=== PATIENT | female | born 1955 | race Caucasian/White ===

== ENCOUNTER 2024-02-13 15:59 | Emergency (ER) | payer MEDICARE, MEDICAID ==
[~2024-02-13] VITALS: Ht 165.1 cm; Wt 70.8 kg
[2024-02-13 16:40] LABS: BILIRUBIN Negative (Negative); BLOOD Negative (Negative); CLARITY Clear (Clear); COLOR Yellow (Yellow); GLUCOSE Negative (Negative); KETONE Negative (Negative); LEUKO ESTERASE Negative (Negative); NITRITE Negative (Negative); SPECIFIC GRAVITY 1.015 (1.001-1.030)
[2024-02-13 16:47] LABS: URINE AMPHETAMINES Negative (1000ng/ml); URINE BARBITURATES Negative (200ng/ml); URINE BENZODIAZEPINES Negative (200ng/ml); URINE CANNABINOIDS (THC) Negative (50ng/ml); URINE COCAINE Negative (300ng/ml); URINE METHADONE Negative (300ng/ml); URINE OPIATES Negative (300ng/ml); URINE PHENCYCLIDINE Negative (25ng/ml)
[2024-02-13 16:53] LABS: RBC 0-2 rbc/hpf (0-2)
[2024-02-13 17:03] LABS: BASO # 0.1 10*3/uL (0.0-0.1); BASO % 1.4 % (0.0-1.0); EOS # 0.2 10*3/uL (0.0-0.4); EOS % 2.6 % (1.0-4.0); HEMATOCRIT 37.1 % (37.0-47.0); LYMPH # 2.5 10*3/uL (1.3-4.4); MEAN CELL VOLUME 90.5 fl (81.0-99.0); MEAN CORPUSCULAR HGB 27.6 pg (27.0-31.0); MEAN CORPUSCULAR HGB CONC 30.5 g/dl (33.0-37.0); MEAN PLATELET VOLUME 12.2 fl (9.6-12.3); MONO # 0.7 10*3/uL (0.1-1.0); MONO % 10.1 % (3.0-9.0); NEUT # 3.2 10*3/uL (2.3-7.9); NEUT % 48.7 % (47.0-73.0); PLATELET COUNT AUTOMATED 148 10*3/uL (130-400); RED CELL DISTRI WIDTH 16.9 % (0-14.5); WHITE BLOOD COUNT 6.6 10*3/uL (4.8-10.8)
[2024-02-13 17:25] LABS: BUN 7 mg/dl (9-23); CHLORIDE 108 mmol/L (98-107); POTASSIUM 4.3 mmol/L (3.4-5.1)
[2024-02-13 17:31] LABS: ETHYL ALCOHOL < 3.0 mg/dl (<3)
[2024-02-13] MEDS ORDERED: ARICEPT10 M1 PO (20:23)
[2024-02-13] MEDS ORDERED: LIPITOR40 MG PO (20:26)
[2024-02-13] MEDS ORDERED: DEPAKOTE SPRIN125 MG PO ×2 (20:27→20:28)
[2024-02-13] MEDS ORDERED: MELATONIN5 M1 PO (20:29)
[2024-02-13] MEDS ORDERED: OMEPRAZOLE40 MG PO (20:30)
[2024-02-13] MEDS ORDERED: PROZAC40 M1 PO (20:31)
[2024-02-13] MEDS ORDERED: POTASSIUM20 MEQ/16 PO (20:31)
[2024-02-13] MEDS ORDERED: QUETIAPINE FUM150 M1 PO (20:32)
[2024-02-13] MEDS ORDERED: TYLENOL EXTRA500 MG PO (20:33)
== END 2024-02-13 18:20 ==
LOC: ED 15:59
PROVIDERS: Physician Assistant Medical
DX: F03.90 Unspecified dementia, unspecified severity, without behavioral disturbance, psychotic disturbance, mood disturbance, and anxiety (principal); F31.9 Bipolar disorder, unspecified